=== PATIENT | male | born 1980 | race Caucasian/White ===

== ENCOUNTER 2021-08-22 10:19 | Inpatient (IN) | payer OTHER ==
[~2021-08-22] VITALS: Ht 167.6 cm; Wt 84.1 kg
[2021-08-22 11:51] LABS: GRAN # 3.1 K/mm3 (1.4-6.5); GRAN % 68.5 % (42.2-75.2); HEMATOCRIT 45.3 % (42.0-52.0); HEMOGLOBIN 15.2 g/dl (13.5-18.0); LYMPH # 1.1 K/mm3 (1.2-3.4); LYMPH % 24.2 % (20.0-51.0); MEAN CELL VOLUME 85 fl (80.0-100.0); MEAN CORPUSCULAR HEMOGLOBIN 29 pg (27.0-31.0); MEAN CORPUSCULAR HGB CONC 34 g/dl (33.0-37.0); MEAN PLATELET VOLUME 10.5 fl (7.4-10.4); MONO # 0.3 K/mm3 (0.1-0.6); MONO % 6.9 % (1.7-9.3); PLATELET COUNT 132 K/mm3 (130-400); RED BLOOD COUNT 5.32 M/mm3 (4.20-5.60)
[2021-08-22 12:22] LABS: ALBUMIN 3.4 gm/dL (3.5-5.0); BILIRUBIN,TOTAL 0.3 mg/dL (0.2-1.2); CALCIUM 8.5 mg/dL (8.4-10.2); CREATININE, serum 1.17 mg/dL (0.72-1.25); POTASSIUM 4.1 mmol/L (3.5-4.5); TOTAL PROTEIN 7.4 gm/dL (6.2-8.1)
[2021-08-22 12:35] LABS: COLLECTION METHOD CLEAN CATCH
[2021-08-22 12:51] LABS: MUCOUS Present /lpf; PH 6 (5-8); URINE APPEARANCE Hazy; URINE BACTERIA None Seen /hpf; URINE BILIRUBIN Negative (NEGATIVE); URINE BLOOD 2+ (NEGATIVE); URINE COLOR Yellow; URINE GLUCOSE 3+ (NEGATIVE); URINE KETONE Trace (NEGATIVE); URINE LEUKOCYTE ESTERASE Trace (NEGATIVE); URINE NITRATE Negative (NEGATIVE); URINE PROTEIN(semi-quant) 3+ (NEGATIVE); URINE UROBILINOGEN Negative (NEGATIVE)
--- NOTE | 2021-08-22 14:52 | NUR ---
PT ARRIVED TO ROOM 304 VIA WHEELCHAIR. A&O. ON 2 L NC, IN NO RESPIRATORY DISTRESS AT THIS TIME. ORIENTED PT TO ROOM AND CALL LIGHT. NO NEEDS VOICED AT THIS TIME.
[2021-08-22 16:00] VITALS: BP 121/68; PULSE 88; TEMP 100
[2021-08-22 20:48] VITALS: BP 125/72; PULSE 98; TEMP 99.5
[2021-08-22 22:57] VITALS: BP 127/83; PULSE 91; TEMP 98.6
[2021-08-23 03:08] VITALS: BP 132/70; PULSE 82; TEMP 98.4
--- NOTE | 2021-08-23 06:00 | NUR ---
PT REMAINS ON 1L NC, AFEBRILE, DENIES N,V,D. REPORTS CHEST PAIN FROM COUGH 07/18 REFUSES MEDICATION. N/S INFUSING AT 75CC/HR TO RH PERIPHERAL. ALL NEEDS MET THIS NIGHT. CALL LIGHT WITHIN REACH.
[2021-08-23 06:38] LABS: GRAN # 3.3 K/mm3 (1.4-6.5); GRAN % 71.9 % (42.2-75.2); HEMATOCRIT 44.5 % (42.0-52.0); HEMOGLOBIN 14.8 g/dl (13.5-18.0); LYMPH % 21.4 % (20.0-51.0); MEAN CELL VOLUME 86 fl (80.0-100.0); MEAN CORPUSCULAR HEMOGLOBIN 29 pg (27.0-31.0); MEAN CORPUSCULAR HGB CONC 33 g/dl (33.0-37.0); MEAN PLATELET VOLUME 10.8 fl (7.4-10.4); MONO # 0.3 K/mm3 (0.1-0.6); MONO % 6.3 % (1.7-9.3); PLATELET COUNT 139 K/mm3 (130-400); RED BLOOD COUNT 5.18 M/mm3 (4.20-5.60); REDCELL DISTRIBUTION WIDTH-CV 13.4 % (11.5-14.5)
[2021-08-23 07:01] LABS: C-REACTIVE PROTEIN 2.2 mg/dL (0.00-0.50); CALCIUM 8.4 mg/dL (8.4-10.2); CREATININE, serum 1.13 mg/dL (0.72-1.25); MAGNESIUM 1.8 mg/dL (1.6-2.6); POTASSIUM 4.2 mmol/L (3.5-4.5)
[2021-08-23 08:50] VITALS: BP 125/74; PULSE 89; TEMP 98.5
--- NOTE | 2021-08-23 11:21 | NUR ---
Strip Polisher contacted patient by room phone as he is in isolation for COVID 19. Patient lives in [place] with his , Jayna (ph#[phone]) and sees Dr. Austin for primary care. Patient gets his medications from [facility] with no difficulties and does not use any DME. Patient is independent with ADLS and plans to return home upon discharge. Patient does not have Advance Directives and is not interested in setting up DPO[facility] at this time. Discharge Plan: Home
[2021-08-23 12:40] VITALS: BP 126/77; PULSE 87; TEMP 98.4
[2021-08-23 16:41] VITALS: BP 119/78; PULSE 85; TEMP 99.1
--- NOTE | 2021-08-23 19:09 | NUR ---
PT CURRENTLY ON 1.5 L NC. COUGH IMPROVING, AFEBRILE THIS SHIFT. FOUND TO HAVE ELEVATED GLUCOSE. CHECKS AT LUNCH AND DINNER WERE IN THE 300'S. WILL CHECK A1C IN THE AM. POSSIBLE DISCHARGE HOME TOMORROW.
[2021-08-23 19:52] VITALS: BP 120/77; PULSE 83; TEMP 98.7
--- NOTE | 2021-08-23 20:30 | NUR ---
Initial shift assessment done- denies pain, states some SOB on exertion,. o2 at 1/5L/nc, states still has a cough but does not want the cough medicine at this time, Up on his own in room, no requests. IV of NS at 50cc/hr
[2021-08-23 22:13] VITALS: BP 121/72; PULSE 78; TEMP 98.6
[2021-08-24 05:10] VITALS: BP 125/72; PULSE 73; TEMP 98.7
--- NOTE | 2021-08-24 05:12 | NUR ---
Quiet night, VSS, temp 98.7, no requests, IV fluids remain NS at 50cc/hr.
[2021-08-24 08:50] VITALS: BP 121/76; PULSE 74; TEMP 98.3
[2021-08-24 12:19] VITALS: BP 123/75; PULSE 76; TEMP 98.2
[2021-08-24 16:08] VITALS: BP 119/77; PULSE 77; TEMP 98.7
[2021-08-24 19:39] VITALS: BP 115/73; PULSE 97; TEMP 99.3
--- NOTE | 2021-08-24 19:48 | NUR ---
PT WORKING TOWARD DISCHARGE CRITERIA, O2 NEEDS DECREASING AND COUGH IMPROVING. BLOOD SUGARS REMAIN ELEVATED IN THE 300'S, WILL NEED DIABETES EDUCATION UPON DISCHARGE.
[2021-08-24 22:34] VITALS: BP 115/82; PULSE 82; TEMP 98.4
[2021-08-25 05:41] VITALS: BP 116/54; PULSE 71; TEMP 97.9
--- NOTE | 2021-08-25 06:24 | NUR ---
Rested quietly throughout nightshift, uneventful, stable condition, VS stable.
[2021-08-25 07:07] LABS: HEMATOCRIT 46.4 % (42.0-52.0); HEMOGLOBIN 15.2 g/dl (13.5-18.0); MEAN CELL VOLUME 87 fl (80.0-100.0); MEAN CORPUSCULAR HEMOGLOBIN 29 pg (27.0-31.0); MEAN CORPUSCULAR HGB CONC 33 g/dl (33.0-37.0); MEAN PLATELET VOLUME 10.7 fl (7.4-10.4); PLATELET COUNT 197 K/mm3 (130-400); RED BLOOD COUNT 5.34 M/mm3 (4.20-5.60); REDCELL DISTRIBUTION WIDTH-CV 13.2 % (11.5-14.5)
[2021-08-25 07:13] LABS: C-REACTIVE PROTEIN 0.33 mg/dL (0.00-0.50); CALCIUM 8.8 mg/dL (8.4-10.2); CREATININE, serum 1.08 mg/dL (0.72-1.25)
[2021-08-25 07:52] VITALS: BP 113/68; PULSE 66; TEMP 97.7
--- NOTE | 2021-08-25 10:20 | NUR ---
PT SITTING UP ON EDGE OF BED FOR BREAKFAST. MORNING MEDICATIONS GIVEN. SHIFT ASSESSMENT COMPLETED. DENIES ANY NEEDS AT THIS TIME. WILL CONTINUE TO MONITOR.
[2021-08-25 12:56] VITALS: BP 117/70; PULSE 72; TEMP 99.1
--- NOTE | 2021-08-25 14:36 | NUR ---
Database Tester collaborated with RT who advised patient will not require home oxgyen upon discharge.
--- NOTE | 2021-08-25 14:48 | NUR ---
PT WILL REQUIRE NO OXYGEN AT HOME PER EXERCISE OXIMETRY. [employer] MARKET[employer] INTERN NOTIFIED.
[2021-08-25 17:00] VITALS: BP 131/81; PULSE 65; TEMP 98.9
[2021-08-25 19:46] VITALS: BP 133/80; PULSE 70; TEMP 98.6
[2021-08-26 04:18] VITALS: BP 121/78; PULSE 63; TEMP 97.8
[2021-08-26 07:53] VITALS: BP 112/74; PULSE 62; TEMP 97.7
--- NOTE | 2021-08-26 10:12 | NUR ---
PT RESTING IN BED. MORNING MEDICATIONS GIVEN. SHIFT ASSESSMENT COMPLETED. DENIES ANY NEEDS AT THIS TIME. WILL CONTINUE TO MONITOR.
[2021-08-26] MEDS ORDERED: GLUCOPHAGE500 MG/TAB PO (11:51)
[2021-08-26] MEDS ORDERED: LANTUS SOLOS100 U/ML SQ (11:54)
[2021-08-26] MEDS ORDERED: FREESTYLE PREC1 EAC5 MC (11:56)
[2021-08-26] MEDS ORDERED: NOVOLOG FLEX100 U/ML SQ (11:56)
[2021-08-26] MEDS ORDERED: LANCETS MC (11:58)
[2021-08-26] MEDS ORDERED: GLUCOSE TEST ST1 DEV MC (11:58)
[2021-08-26] MEDS ORDERED: BD ALCOHOL1 SWA TD (11:59)
[2021-08-26 12:51] VITALS: BP 122/76; PULSE 70; TEMP 97.6
--- NOTE | 2021-08-26 14:21 | NUR ---
Communication Spec collaborated with Karely, Radio Disc Jockey who has attempted to set up patient with a hospital follow up appointment with primary care. Patient reports he sees Dr. Austin, however when Karely contacted [facility] they have no record of him. Karely followed up with patient who stated he did not have time for this as his was here to pick him up. CAYETANO contacted OTF Khalil CM at [facility] who will review patient's chart and see if there are any physicians willing to take him as a new patient. Simran stated she will follow up with patient.
== END 2021-08-26 14:43 | disposition home or self-care (01) | DRG 177 ==
LOC: COL.ER 10:19 → MEDICAL 12:45
PROVIDERS: Family Medicine; Internal Medicine; ADMIT Internal Medicine
DX: U07.1 COVID-19 (principal); J12.82 Pneumonia due to coronavirus disease 2019; Z90.5 Acquired absence of kidney; E11.9 Type 2 diabetes mellitus without complications; Z73.0 Burn-out
CPT/HCPCS: 99223-AI; 99232-AI; 99233-AI; 99239; J0696; J1650; J1815; J7030; J8540

== ENCOUNTER 2022-05-20 05:20 | Emergency (ER) | payer OTHER ==
[~2022-05-20] VITALS: Ht 165.1 cm; Wt 97.7 kg
[~2022-05-20 05:20] MED LIST: BD ALCOHOL1 SWA TD; FREESTYLE PREC1 EAC5 MC; GLUCOPHAGE500 MG/TAB PO; GLUCOSE TEST ST1 DEV MC; LANCETS MC; LANTUS SOLOS100 U/ML SQ; NOVOLOG FLEX100 U/ML SQ
[2022-05-20 05:23] VITALS: TEMP 98.6
[2022-05-20 07:07] VITALS: BP 138/94; PULSE 71
== END 2022-05-20 07:20 | disposition home or self-care (01) ==
LOC: COL.ER 05:20
DX: S06.9X3A Unspecified intracranial injury with loss of consciousness of 1 hour to 5 hours 59 minutes, initial encounter (principal); Z87.891 Personal history of nicotine dependence; Z28.310 Unvaccinated for COVID-19; V89.2XXA Person injured in unspecified motor-vehicle accident, traffic, initial encounter; Y92.410 Unspecified street and highway as the place of occurrence of the external cause